=== PATIENT | female | born 1995 ===

== ENCOUNTER 2022-04-14 16:03 | Emergency (ER) | payer OTHER, MEDICAID, SELFPAY ==
[2022-04-14] VITALS (64 sets, daily range): BP systolic 123–171; BP diastolic 83–107; PULSE 52–132; RESP 12–45; TEMP 36.2; O2SAT 95–100; BMI 21.0
--- NOTE | 2022-04-14 16:08 | ED_ITS ---
HPI - General Adult General Chief complaint: Toxicology Problem Stated complaint: Possible OD Time Seen by Provider: 04/14/22 16:03 Source: patient and EMS Mode of arrival: EMS Limitations: no limitations History of Present Illness HPI narrative: Patient is a 26-year-old female who is brought into the emergency department for evaluation of a potential multidrug overdose. Patient admits to taking benzodiazepines, fentanyl, methamphetamine and ?a little ?alcohol today. Patient was at home with her boyfriend. He states he left the room while she was sleeping in order to use the phone. He was going approximately 20 minutes and when he came back he noticed that she was stiff. It appeared that her eyes were rolled back in her head. She was ?not responsive ?initially was a call out as a CPR however prior to EMS arrival the patient did wake up. Boyfriend states she was confused afterwards. There was no loss of bowel or bladder. EMS reports she is been alert and oriented since their arrival. There was no Narcan given. Patient's only current complaint is that she is anxious. She is a history of PTSD and anxiety. Patient has no seizure history. Related Data Home Medications Medication Instructions Recorded Confirmed No Known Home Medications 04/14/22 04/14/22 Allergies Allergy/AdvReac Type Severity Reaction Status Date / Time No Known Drug Allergies Allergy Verified 04/14/22 16:11 Review of Systems Review of Systems ROS Unobtainable: All systems reviewed & are unremarkable except as noted in HPI and below Patient History Medical History Anxiety Drug abuse PTSD (post-traumatic stress disorder) Social History Smoking Status: Current every day smoker Exam Initial Vital Signs Initial Vital Signs: Vital Signs Pulse Rate 114 H 04/14/22 16:06 Pulse Oximetry 100 04/14/22 16:06 Const General: cooperative and comfortable HENMT Head: normal to inspection and normocephalic Eyes Pupils: PERRL Resp Effort & Inspection: normal respiratory effort Auscultation: clear to auscultation bilaterally Cardio Rate: tachycardic Rhythm: regular rhythm GI Inspection: normal to inspection and non-distended Skin General: no rashes or lesions noted Neuro General: patient alert, patient awake, patient oriented x3 and moves all extremities Cognition: normal cognition Speech: speech normal Extrem General: normal to inspection and capillary refill normal Psych Appearance: grossly normal and well kempt Course Orders Ordered: ED Orders 04/14/22 16:33 Acetaminophen Stat Complete Blood Count AUTO DIFF Stat Comprehensive Metabolic Panel Stat Lipase Stat Test Serum,Qual Stat Salicylate Stat 04/14/22 16:44 Consult to [facility] [place] [place] - Records Management Manager Stat Vital Signs Vital signs: Vital Signs - 8 hr 04/14/22 16:08 04/14/22 16:06 04/14/22 16:30 Temperature 97.1 F L Pulse Rate 128 H 114 H Respiratory Rate 20 Blood Pressure 171/93 H 143/101 H Pulse Oximetry 99 100 Oxygen Delivery Method Room Air 04/14/22 16:30 04/14/22 16:33 04/14/22 16:33 Temperature Pulse Rate 108 H 105 H Respiratory Rate 19 17 Blood Pressure 134/95 H Pulse Oximetry 100 100 Oxygen Delivery Method 04/14/22 16:40 04/14/22 16:40 04/14/22 16:50 Temperature Pulse Rate 112 H Respiratory Rate 19 Blood Pressure 148/97 H 152/107 H Pulse Oximetry 100 Oxygen Delivery Method 04/14/22 16:50 04/14/22 16:51 04/14/22 16:51 Temperature Pulse Rate 115 H 108 H Respiratory Rate 19 15 Blood Pressure 145/102 H Pulse Oximetry 100 100 Oxygen Delivery Method 04/14/22 17:00 04/14/22 17:00 04/14/22 17:10 Temperature Pulse Rate 97 H Respiratory Rate 16 Blood Pressure 146/101 H 151/106 H Pulse Oximetry 99 Oxygen Delivery Method 04/14/22 17:10 04/14/22 17:20 04/14/22 17:20 Temperature Pulse Rate 97 H 85 Respiratory Rate 19 20 Blood Pressure 145/99 H Pulse Oximetry 99 98 Oxygen Delivery Method 04/14/22 17:30 04/14/22 17:30 04/14/22 17:40 Temperature Pulse Rate 85 Respiratory Rate 22 Blood Pressure 145/98 H 143/96 H Pulse Oximetry 100 Oxygen Delivery Method Room Air 04/14/22 17:40 Temperature Pulse Rate 99 H Respiratory Rate 22 Blood Pressure Pulse Oximetry 100 Oxygen Delivery Method Room Air Medical Decision Making Lab Data Lab results reviewed: Yes I reviewed the patient's lab results. Result diagrams: 04/14/22 16:33 04/14/22 16:33 Labs: Lab Results 04/14/22 04/14/22 04/14/22 Range/Units 16:33 16:33 16:33 WBC 7.3 (4.5-11.0) X10^3/uL RBC 4.63 (4.0-5.2) X10^6/uL Hgb 14.3 (12.0-16.0) g/dL Hct 39.9 (36-46) % MCV 86.2 (80-100) fL MCH 30.9 (26-34) PG MCHC 35.9 (30-36) % RDW 12.4 (11.6-14.8) % Plt Count 334 (150-400) X10^3/uL Neut % (Auto) 73.2 (50-75) % Lymph % (Auto) 18.1 L (25-40) % Glades % (Auto) 7.4 (3-14) % Eos % (Auto) 0.7 L (2-4) % Baso % (Auto) 0.6 (0-2) % Neut # (Auto) 5300 (2979-1881) /uL Lymph # (Auto) 1300 (8059-6872) /uL Glades # (Auto) 500 (0-900) /uL Eos # (Auto) 100 (0-450) /uL Baso # (Auto) 0 (0-100) /uL Sodium 137 (137-145) mmol/L Potassium 3.7 (3.4-5.1) mmol/L Chloride 100 (98-107) mmol/L Carbon Dioxide 21 L (22-32) mmol/L BUN 5 L (7-17) mg/dL Creatinine 0.57 (0.52-1.04) mg/dL Estimated GFR > 60 (>60) mL/min BUN/Creatinine Ratio 8.8 (6-22) Glucose 105 H (70-100) mg/dL Calcium 10.1 (8.4-10.2) mg/dL Total Bilirubin 0.6 (0.2-1.3) mg/dL AST 19 (14-36) IU/L ALT 19 (<35) IU/L Alkaline Phosphatase 57 (38-126) U/L Total Protein 8.3 H (6.3-8.2) g/dL Albumin 4.7 (3.5-5.0) g/dL Globulin 3.6 (1.7-4.1) g/dL Albumin/Globulin Ratio 1.3 (1.0-2.8) Lipase 35 (23-300) U/L Serum , Qual Negative (Negative) Salicylates < 1.0 (<20) mg/dL Acetaminophen < 10 (10-30) ug/mL MDM Narrative Medical decision making narrative: I am not convinced that the patient had a seizure as she states she does remember her boyfriend standing over top of her. Her labs are unremarkable. She is been alert oriented x3. She states she feels less anxious since arrival here. I have a high suspicion that this is related to her substance abuse. She was seen by social work. Offered detox but she declined. They have Narcan at home. Will discharge home. Discharge Plan Departure Patient Disposition: Home Clinical Impression: Overdose Instructions: DI for Substance Use Disorder Activity Restrictions/Additional Instructions: I do recommend that you use the information that you were given and consider going to detox. Return to the emergency department for any new or worsening symptoms. Prescriptions: No Action No Known Home Medications
[2022-04-14 17:05] LABS: Add Manual Diff / Slide Review NO; Basophils Absolute Auto 0 /uL (0-100); Basophils Percent Auto 0.6 % (0-2); Eosinophils Absolute Auto 100 /uL (0-450); Eosinophils Percent Auto 0.7 % (2-4); Hematocrit 39.9 % (36-46); Hemoglobin 14.3 g/dL (12.0-16.0); Lymphocytes Absolute Auto 1300 /uL (1100-4500); Lymphocytes Percent Auto 18.1 % (25-40); Mean Corpuscular HGB Conc 35.9 % (30-36); Mean Corpuscular Hemoglobin 30.9 PG (26-34); Mean Corpuscular Volume 86.2 fL (80-100); Monocytes Absolute Auto 500 /uL (0-900); Monocytes Percent Auto 7.4 % (3-14); Neutrophils Absolute Auto 5300 /uL (1500-7000); Neutrophils Percent Auto 73.2 % (50-75); Platelet Count 334 X10^3/uL (150-400); Red Blood Cell Count 4.63 X10^6/uL (4.0-5.2); Red Cell Distribution Width 12.4 % (11.6-14.8); White Blood Cell Count 7.3 X10^3/uL (4.5-11.0)
[2022-04-14 17:22] LABS: Acetaminophen < 10 ug/mL (10-30); Albumin 4.7 g/dL (3.5-5.0); Albumin Globulin Ratio 1.3 (1.0-2.8); Alkaline Phosphatase 57 U/L (38-126); Aspartate Aminotransferase 19 IU/L (14-36); BUN Creatinine Ratio 8.8 (6-22); Bilirubin Total 0.6 mg/dL (0.2-1.3); Blood Urea Nitrogen 5 mg/dL (7-17); Calcium 10.1 mg/dL (8.4-10.2); Carbon Dioxide 21 mmol/L (22-32); Chloride 100 mmol/L (98-107); Estimated Glomerular Filt Rate > 60 mL/min (>60); Globulin 3.6 g/dL (1.7-4.1); Glucose 105 mg/dL (70-100); HEMOLYSIS < 15 (0-50); Lipase 35 U/L (23-300); Potassium 3.7 mmol/L (3.4-5.1); Salicylate < 1.0 mg/dL (<20); Sodium 137 mmol/L (137-145); Total Protein 8.3 g/dL (6.3-8.2)
[2022-04-14 17:27] LABS: Alanine Aminotransferase 19 IU/L (<35)
[2022-04-14 17:36] LABS: Pregnancy Test Serum,Qual Negative (Negative)
--- NOTE | 2022-04-14 17:36 | CM.SWNOTE ---
AUTOMATIC PROFILE SHAPER OPERATOR - Auto Radiator Specialist Assessment AUTOMATIC PROFILE SHAPER OPERATOR - Auto Radiator Specialist Assessment Start: 04/14/22 17:24 Freq: Status: Active Protocol: Document 04/14/22 17:24 TM (Rec: 04/14/22 17:36 TM [id number]) AUTOMATIC PROFILE SHAPER OPERATOR/Auto Radiator Specialist Assessment Time Spent with Patient Start date 04/14/22 Visit Start Time 17:00 End date 04/14/22 Visit End Time 17:30 Substance Abuse Screening Include Onset, Duration, Intensity Presenting Problem Pt is 26 year old female who presents to ED for multi drug overdose. Pt reportedly used perc30 fentanyl (10-20 pills), and drank 6-8 beers. Precipitating Event(s) Pt relapsed approximately 10 months ago following a period of 4 years sobriety. Pt has significant PTSD and anxiety. Pt recently stopped methadone program, which led to an increase in substance use. Patient Strengths history of successful sobriety . Current Behavioral Health Provider(s) none. Include Facility, Provider, Ph. # Rehab Facilities? ((Date(s), Location(s) Pt reports doing a 30 day ) program in [place] where she is from. Pt reports completing several 30 day programs in past. History of Withdrawal? Seizures? Pt denies history of seizure. Pt endorses withdrawal history . Longest Period of Sobriety 4 years, starting in 2018 when her daughter was born. Psychosocial information & Support Boyfriend. Systems School/Work none. Legal Concerns Legal Matters - Outstanding Issues Several misdemeanors. Pt reports missing several court dates over last year. Mental Status Orientation (Person/Place/Time) Pt is oriented to person, place, and time. Stated Mood I feel sick Affect (Congruent with Mood?) broad. Thought Content - Specify/Describe no AH, VH noted. Obsessions, Delusions, Hallucinations Thought Processes (Hqokrlt-Hzjlhtcr-Zkkg logical. Jgmqqqmb-Rlcwtioz-Nmzjgbfjyr- Mnjzdzsdqsekhd-Vxxkewx-Eyxrjygcnrxf- Thought Blocking) Speech (Muylfb-Pgee-Pwuocxv-Rapid-Soft- slow Loud-Pressured) Motor (Chnkdg-Vtwjlbjgn-Xvdp-Other) slow, per drug use. Insight (Zdug-Cjrp-Xrme/Limited) fair Judgement (Uful-Rybp-Vlnh/Limited) fair Impulse Control (Adequate-Impaired) not tested. Memory (Yatdlvhzr-Wtsabt-Zzzgxe, intact. Impaired-Intact) Concentration (Intact-Impaired) impaired. Attention (Intact-Impaired) impaired, per drug use. Behavior (Appropriate-Inappropriate) appropriate. Risk Assessment Suicidal Ideation (Plan) No Homicidal Ideation (Plan) No Intervention Intervention GARIMA met with pt and her significant other at bedside. SW discussed events that brought pt to ED today. Pt reports that she does not remember taking anything but remembers boyfriend waking her up and feeling really shaky. Pt reports that she plans to eventually return to [place] where her daughter is currently in custody with pt's mother. Pt hopeful to enter treatment when she returns to [place]. GARIMA verified pt's insurance benefits and provided resources on short term and fpc detox optons. Pt reports that she does not want to do detox at this time. Plan RA Plan Once medically stable, pt will discharge home with resources . GARIMA made pt aware that sw is available should pt change her mind about wanting to enter detox immediately. ANTONINO Srinivasan
--- NOTE | 2022-04-14 18:05 | PC.NURSE ---
I was in the room discussing the discharge paper work with the patient and her boyfriend Yosi. I removed the patients IV and the patient got dressed. patient stood up and then her head started shaking. I helped the patient sit back on the bed and then the patient started to have a seizure. I called for help and helped the patient to lay on her right side. Dr. Holden at bedside. patient placed on a non rebreather. all tight clothing removed. Dr. Holden verbal order for IM ativan 2mg. RT at bedside. patient placed in recovery position on her left side. suction at bedside. seizure pads placed. lights turned down. will continue to monitor.
[2022-04-14] MEDS: LORazepam 2 MG/ML INJ (18:07)
--- NOTE | 2022-04-14 18:13 | DI.CT.S_ITS ---
PROCEDURE: CT HEAD/BRAIN WO CON INDICATIONS: first time seizure TECHNIQUE: Noncontrast 4.5 mm thick angled axial sections acquired from the foramen magnum to the vertex, with coronal and sagittal reformats. For radiation dose reduction, the following was used: automated exposure control, adjustment of mA and/or kV according to patient size. COMPARISON: None. FINDINGS: Image quality: Excellent. CSF spaces: Basal cisterns are patent. No extra-axial fluid collections. Ventricles are normal in size and shape. Brain: No midline shift. No intracranial masses or hemorrhage. Mora-white matter interface is normal. Skull and face: Calvarium and visualized facial bones are intact, without suspicious lesions. Sinuses: Visualized sinuses and mastoids are clear. IMPRESSION: Normal CT of the brain Approved by: Melvin Bazan M.D. on 04/14/2022 at 18:20
[2022-04-14 18:27] LABS: Prothrombin Time 11.9 SECONDS (10.1-12.7)
[2022-04-14 18:45] LABS: Ethanol (ETOH) < 10 mg/dL
[2022-04-14 19:52] LABS: COVID19 -Nasal RAPID Negative (Negative)
[2022-04-14 20:28] LABS: Appearance Urine UA CLOUDY; Bilirubin Urine UA NEGATIVE (NEGATIVE); Color Urine UA YELLOW; Glucose Urine UA NEGATIVE (Negative); Ketones Urine UA NEGATIVE (NEGATIVE); Leukocyte Esterase Urine UA TRACE (NEGATIVE); Nitrite Urine UA NEGATIVE (Negative); Occult Blood Urine UA TRACE-LYSED (Negative); Protein Urine UA TRACE (Negative); Urobilinogen Urine UA 0.2 E.U./dL (0.2)
[2022-04-14 20:41] LABS: Ur Creatinine Normal (Normal); Ur Specific Gravity Normal (Normal); Urine pH Normal (Normal)
[2022-04-14 20:43] LABS: UR Morphine/Opiate cutoff 300 Negative (Negative); Urine Amphetamines Positive (Negative); Urine Barbiturates Negative (Negative); Urine Benzodiazepines Positive (Negative); Urine Cocaine Negative (Negative); Urine MDMA Negative (Negative); Urine Methadone Negative (Negative); Urine Methamphetamines Positive (Negative); Urine Oxycodone Negative (Negative); Urine Phencyclidine Negative (Negative); Urine Tetrahydrocannabinol Positive (Negative); Urine Tricyclic Antidepressant Negative (Negative)
[2022-04-14 20:45] LABS: Bacteria Urine Many (>30); Culture Indicated Urine Specimen Cultured; RBC Urine 5-10/HPF (0-5/HPF); WBC Urine 5-10/HPF (0-5/HPF)
[2022-04-14] MEDS: cephALEXin 250 MG PREPACK 1 BOTTLE MISC (22:02)
== END 2022-04-14 22:06 | disposition home or self-care (01) ==
PROVIDERS: Emergency Medicine; Emergency Provider Emergency Medicine
DX: R56.9 Unspecified convulsions (principal); T50.994A Poisoning by other drugs, medicaments and biological substances, undetermined, initial encounter; Z20.822 Contact with and (suspected) exposure to COVID-19
CPT/HCPCS: 36415; 70450; 80053; 80305; 80320; 80329; 81001; 83690; 84703; 85025; 85610; 87077; 87086; 87186; 87635; 99284; C9803; G0480; J2060

== ENCOUNTER 2022-06-27 13:08 | Emergency (ER) | payer OTHER, MEDICAID, SELFPAY ==
[2022-06-27 13:19] VITALS: BP 153/104; PULSE 106; RESP 20; TEMP 36.6; O2SAT 100; BMI 20.1
--- NOTE | 2022-06-27 15:13 | ED.RECABL ---
HPI - Recheck/Abnormal Lab/Rx General Chief Complaint: Recheck/Abnormal Lab/Rx Stated Complaint: anxiety, tremors, history of seizures Time Seen by Provider: 06/27/22 15:01 Source: patient Mode of arrival: Ambulatory Limitations: no limitations History of Present Illness HPI narrative: Patient is a 26-year-old female. Has a history of anxiety and also reported history of seizures. She is not on any specific seizure medication. She states she takes clonidine and Xanax for her seizures and her anxiety. She stated that she has not taken any these medications for the past 3 days because she is out of the medicines that she was concerned that she is withdrawing from the benzodiazepines and is ?on the verge of having a seizure? she states she does not have a specific provider for these medications. She initially stated that she received the prescriptions when she lived in [place] but she is moved to the local area. She then stated that she would a provider and emily who was prescribing her medicines but she no longer sees this individual. Family at bedside states that she does use ?a little? methamphetamine. She also uses marijuana. They also stated that they have been buying benzodiazepines off the street. Related Data Allergies Allergy/AdvReac Type Severity Reaction Status Date / Time No Known Drug Allergies Allergy Verified 06/27/22 14:36 Review of Systems Constitutional Constitutional: Reports system reviewed and no additional complaints, except as documented Neurologic Neurologic: Reports system reviewed and no additional complaints, except as documented Psychiatric Psychiatric: Reports system reviewed and no additional complaints, except as documented Patient History Medical History Anxiety Drug abuse PTSD (post-traumatic stress disorder) Social History Smoking Status: Current every day smoker Smoking Status: Current every day smoker alcohol intake frequency: 3 or more drinks per day Substance Use Type: amphetamines, opiates and methamphetamine Exam Initial Vital Signs Initial Vital Signs: Vital Signs Temperature 98 F 06/27/22 13:19 Pulse Rate 106 H 06/27/22 13:19 Respiratory Rate 20 06/27/22 13:19 Blood Pressure 153/104 H 06/27/22 13:19 Pulse Oximetry 100 06/27/22 13:19 Oxygen Delivery Method 06/27/22 13:19 Const General: cooperative and other (Disheveled) HENMT Head: normal to inspection and normocephalic Resp Effort & Inspection: normal respiratory effort Auscultation: clear to auscultation bilaterally Cardio Rate: regular rate Rhythm: regular rhythm Skin Other: Multiple lesions throughout the body in various stages of healing. No signs of infection Neuro General: patient alert, patient awake and moves all extremities Psych Appearance: disheveled Course Orders Ordered: ED Orders 06/27/22 13:24 Consult to TRIGONOMETRY TUTOR - Lollypop Machine Operator Stat Vital Signs Vital signs: Vital Signs - 8 hr 06/27/22 13:19 Temperature 98 F Pulse Rate 106 H Respiratory Rate 20 Blood Pressure 153/104 H Pulse Oximetry 100 Oxygen Delivery Method Room Air MDM - Recheck/Abnormal Lab/Rx MDM Narrative Medical decision making narrative: No seizure activity here in the emergency department. She stated that she is not taken any benzodiazepines in the last 3 days. I informed her that that was good because she has gone through the withdrawal period for this. Informed her that if she was having seizures that we should start her on antiseizure medications and not long-term benzodiazepine use. Also informed her that if she is having significant anxiety that we should start her on antianxiety medicines and not benzodiazepines. Patient was seen by social work. Before my final interaction with them the patient and her partner at bedside decided that they wanted to leave. They left without specific discharge instructions by myself. Discharge Plan Departure Patient Disposition: Left Against Medical Advice Clinical Impression: Left against medical advice Stand Alone Forms: Against Medical Advice
--- NOTE | 2022-06-27 16:19 | PC.NURSE ---
The patient was assessed with her significant other in the room. She was asked when she last had a seizure and she said last time she was here. She stated that she was given no medication and a packet of information about seizure with a follow up. When she was asked if she followed up with her doctor, her sig other stated their car broke down and could not go. Her significant other would make most of the responses for her letting her answer intermittently. When asked why she came in today the patient stated that she was worried that she would have a seizure since her benzos were gone. The significant other then stated my biggest concern that she is out of benzos, and I 'm worried she's going to have another seizure. The significant other asked about getting more benzos The patient was informed that they may not get a refill on her prescription while here and would need to wait to see the doctor who will decide the best course of action. The significant other well I know how that's going to go because of last time. They wanted to leave against medical advice without singing papers
--- NOTE | 2022-06-27 16:23 | CM.SWNOTE ---
Addendum entered by Tima Porter 06/27/22 16:28: Clarification on patients departure from the ED: Pt left AMA at 16:15 Original Note: HELMINTHOLOGY TEACHER - Fiction And Nonfiction Prose Writer Assessment HELMINTHOLOGY TEACHER - Fiction And Nonfiction Prose Writer Assessment Start: 06/27/22 16:09 Freq: Status: Active Protocol: Document 06/27/22 16:09 VR (Rec: 06/27/22 16:22 VR [id number]) HELMINTHOLOGY TEACHER/Fiction And Nonfiction Prose Writer Assessment Time Spent with Patient Start date 06/27/22 Visit Start Time 15:20 End date 06/27/22 Visit End Time 15:30 Total time Care Management spent on 30 patient visit-in minutes Mental Health Screening Include Onset, Duration, Intensity Presenting Problem Patient arrives to the ED voluntarily for anxiety and requesting resource information for OP MH providers/ prescriber and [facility] services. She also identifies concern of PTSD Precipitating Event(s) Pt identifies increased anxiety in recent weeks which she has been managing with Xanax and Clonidine she has been buying off the street. Patient Strengths Identifies partner is supportive. Identifies desire to engage in services. Current Behavioral Health Provider(s) None Include Facility, Provider, Ph. # Psych. Hx Mental Health and Chemical Pt identifies hx of one IP Dependency psychiatric placements as a youth and diagnosis or PTSD and Bipolar disrorder. She also has a hx of polysubstance abuse as detailed below. Family Hx of Behavioral Abuse Unknown Psychiatric Hospitalizations (date(s)/ As a juvenile, unknown where location) this placement was. Psychosocial information & Support Pt is from [place]. She has been in [facility] for roughly one year. she has a 4yo daughter in the care of her mother in [place]. School/Work Pt graduated from high school and has worked in [employer]. last job was at [employer] roughly 6-8 months ago. Substance Abuse Screening Include Onset, Duration, Intensity Presenting Problem Pt details long hx of substance abuse concerns. she relapsed after a five year period of sobriety one year ago. She details currently using methamphetamine most days, alcohol everyday 4-8 beers a day, marijuana daily for years, and Xanax daily for roughly one year. Precipitating Event(s) Unclear Patient Strengths See above Current Behavioral Health Provider(s) See above Include Facility, Provider, Ph. # Family Hx of Behavioral Abuse Unknown Rehab Facilities? ((Date(s), Location(s) pt details hx of roughly 6 IP ) [facility] treatment episodes. The most recent was five years ago . she was on Suboxone until roughly 6 months ago and notes the suboxone made it hard to be clean from the benzodiazepines. History of Withdrawal? Seizures? Pt reports hx of seizures with benzodiazepine withdrawal. Longest Period of Sobriety Five years Psychosocial information & Support See above Systems School/Work See above Legal Concerns Legal Matters - Outstanding Issues Pt denies Mental Status Orientation (Person/Place/Time) pt is A&ox4 Stated Mood worried ill have a seizure Affect (Congruent with Mood?) calm and cooperative, congruent with mood. Thought Content - Specify/Describe Unremarkable Obsessions, Delusions, Hallucinations Thought Processes (Nzwyadf-Ehzdysab-Whdv Linear, goal oriented Qosgbsjr-Zkknvxkt-Sxzcdjpqjj- Tfuiqioxvtlynp-Twienfc-Qgbeptfwpxrm- Thought Blocking) Speech (Zwntsl-Ahpj-Kulkobv-Rapid-Soft- Normal Loud-Pressured) Motor (Eyfxnh-Dwhojzrzh-Jeif-Other) Normal Insight (Jsmn-Hcke-Uhwb/Limited) Fair Judgement (Ymgt-Mypn-Aapm/Limited) Fair Impulse Control (Adequate-Impaired) Fair Memory (Kcqgqlsyt-Tupvpa-Dezmyi, Good Impaired-Intact) Concentration (Intact-Impaired) Good Attention (Intact-Impaired) Fair Behavior (Appropriate-Inappropriate) appropriate, calm, and cooperative Risk Assessment Suicidal Ideation (Plan) No Homicidal Ideation (Plan) No Intervention Intervention HELMINTHOLOGY TEACHER met with pt at bedside with significant other present per patients preference. Pt is A&OX4. pt details concern for increased anxtiety adn concern she will have a seizure after not having Xanax for three days. she has been prescribed this in the past but has recently been buying off the street. pt is also interested in detox information but for the future as she details that she can't go to detox without an ID and she is in the process of getting one. pt has a PCP in [place] but has not seen him in a while. she is interested in a local PCP. Pt with no SI, HI, or AVH . she details she has a hx of Bipolar disorder and no current MH providers. she is seeking connection with psychiatric prescriber to get back on medications. pt details that primary concern in [facility] ED today is that i'll seize from benzodiazepine withdrawal. Pt is calmly accepting of resource information regarding local PCP offices, regional detox providers, and OP MH providers. Plan RA Plan Case discussed with ED MD. HELMINTHOLOGY TEACHER was informed that pt eloped from the ED.
--- NOTE | 2022-06-27 16:33 | PC.NURSE ---
see assessment note
== END 2022-06-27 16:14 | disposition left against medical advice (07) ==
PROVIDERS: Emergency Provider Emergency Medicine
DX: F15.23 Other stimulant dependence with withdrawal (principal)
CPT/HCPCS: 99281